=== PATIENT | male | born 1970 | race Two or more races ===

== ENCOUNTER 2016-05-16 08:30 | Emergency (ER) | payer BC ==
[2016-05-16 08:42] VITALS: BP 165/95; PULSE 73; RESP 18; TEMP 98.2; O2SAT 95
--- NOTE | 2016-05-16 09:18 | EDPHY ---
H & P Time Seen by Provider: 05/16/16 09:03 HPI/ROS: CHIEF COMPLAINT: Back pain HISTORY OF PRESENT ILLNESS: 45-year-old male presents to the emergency department by private vehicle complaining of low back pain. 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 He denies radiation of pain anywhere. Denies feeling weakness in his upper lower extremities. Denies bowel or bladder incontinence. Denies foot drop. He has pain especially with certain range of motion. He denies chest pain or difficulty breathing. Denies abdominal pain. He denies neck pain. Denies urinary symptoms. He has been continuing to work and lift heavy objects at work. REVIEW OF SYSTEMS: Constitutional: No fever, no chills. Eyes: No double or blurry vision. ENT: No sore throat. Respiratory: No cough, no shortness of breath. Cardiac: No chest pain. Gastrointestinal: No abdominal pain, vomiting or diarrhea. Genitourinary: No dysuria. Musculoskeletal: Back pain as above. No neck pain. Skin: No rashes. Neurological: No headache. Past Medical/Surgical History: Negative Social History: and lives in [place] Smoking Status: Never smoked Physical Exam: General Appearance: Alert, no distress. Eyes: Pupils equal and round. Extraocular motions are all intact. ENT: Mouth: Mucous membranes moist. Respiratory: No wheezing, rhonchi, or rales, lungs are clear to auscultation. Cardiovascular: Regular rate and rhythm. Gastrointestinal: Abdomen is soft and nontender, no masses, no rebound or guarding, bowel sounds normal. Neurological: Alert and oriented x 3, cranial nerves II through XII grossly intact Skin: Warm and dry, no rashes. Musculoskeletal: Nontender to palpate along the cervical, thoracic or lumbar spine. Neck is supple. Straight leg raise is negative bilaterally. Full flexion and extension of his knees to his chest without difficulty. Reflexes are 2+ and equal for lower extremities bilaterally. Extremities: Full range of motion and no peripheral edema. Normal heel-toe walking. He is able to bend down fully in touch his toes without difficulty. Laterally bending to the left and right and twisting to the left right all causes some mild discomfort. Normal gait. Psychiatric: Patient is oriented X 3, there is no agitation. Constitutional: Initial Vital Signs Temperature (C) 36.8 C 05/16/16 08:39 Heart Rate 73 05/16/16 08:39 Respiratory Rate 18 05/16/16 08:39 Blood Pressure 165/95 H 05/16/16 08:39 O2 Sat (%) 95 05/16/16 08:39 O2 Delivery Mode Room Air Allergies/Adverse Reactions: No Known Allergies Allergy (Verified 05/16/16 08:39) Home Medications: Medication Instructions Recorded Cyclobenzaprine [Flexeril] 10 mg PO TIDPRN PRN #12 tab 05/16/16 Medical Decision Making ED Course/Re-evaluation: 45-year-old male presents to the emergency department with 3-4 week history of low back pain. The patient did not sustain any fall or other trauma. His pain is worse with movement. He has no focal neurologic findings. I do not think imaging studies are necessary. This was explained to the patient who verbalized understanding and agreed. Patient was encouraged to use anti-inflammatory such as ibuprofen. He was also given prescription for Flexeril. He states that he is sleeping normally at night and therefore would not be given any other stronger pain medication. He was given a note for work to do no lifting until follow-up with occupational health. Differential Diagnosis: Back pain including but not limited to muscular pain, herniated disc, spine fracture, intra-abdominal causes and urinary tract infection. Departure - Departure Disposition: Home, Routine, Self-Care Clinical Impression: Low back pain Qualifiers: Chronicity: acute Back pain laterality: unspecified Sciatica presence: without sciatica Qualified Code(s): M54.5 - Low back pain Condition: Good Instructions: Low Back Strain (ED), Acute Low Back Pain (ED) Additional Instructions: Ibuprofen 600 mg every 8 hours as needed for pain. Flexeril as needed for muscular spasm. No lifting until follow-up with Occupational Health in 1 week. Return if you develop numbness or tingling in your toes, feelings of weakness in her lower legs, bowel or bladder incontinence, or if you feel worse in any way. Referrals: Lex Garzon MD [Medical Doctor] - As per Instructions (Neurosurgeon on-call) Work Comp Ref/Restrictions [Outside] - 1-2 days without fail Prescriptions: Cyclobenzaprine [Flexeril] 10 mg PO TIDPRN PRN #12 tab PRN Reason: Spasms
== END 2016-05-16 09:31 | disposition home or self-care (01) ==
DX: S39.92XA Unspecified injury of lower back, initial encounter (principal); X58.XXXA Exposure to other specified factors, initial encounter; Y92.512 Supermarket, store or market as the place of occurrence of the external cause; Y99.0 Civilian activity done for income or pay